=== PATIENT | female | born 2000 | race Caucasian/White ===

== ENCOUNTER 2018-07-18 17:14 | Emergency (ER) | payer BC ==
--- NOTE | 2018-07-18 20:24 | EDPHY ---
H & P Stated Complaint: "Woozy" since blood draw yest, near syncope, asymptom now. - Personal History Current Tetanus/Diphtheria Vaccine: Yes - Medical/Surgical History Hx Asthma: No Hx Chronic Respiratory Disease: No Hx Diabetes: No Hx Cardiac Disease: No Hx Renal Disease: No Hx Cirrhosis: No Hx Alcoholism: No Hx HIV/AIDS: No Hx Splenectomy or Spleen Trauma: No Other PMH: GI problems - Social History Smoking Status: Never smoked Time Seen by Provider: 07/18/18 20:10 HPI/ROS: CHIEF COMPLAINT: "Feeling woozy" HISTORY OF PRESENT ILLNESS: 17-year-old female generally healthy, complaining of feeling lightheaded and "woozy" after routine blood dry yesterday for screening laboratory tests. No blood donation. No syncope ower. No chest pain. No abdominal pain. No complaints of pain. REVIEW OF SYSTEMS: 10 systems reviewed and negative with the exception of the elements mentioned in the history of present illness PAST MEDICAL & SURGICAL HISTORY: No pertinent medical or surgical history SOCIAL HISTORY:Student nonsmoker PHYSICAL EXAM (Prior to examination, patient consented to physical exam, hands were washed and my usual and customary physical exam procedures followed) 1) GENERAL: Well-developed, well-nourished, alert and oriented. Appears to be in no acute distress. 2) HEAD: Normocephalic, atraumatic 3) HEENT: Pupils equal, round, reactive to light bilaterally. Sclera anicteric. Nasopharynx, oropharynx, clear, no lesions. Moist mucous membranes. Ears bilaterally with normal tympanic membranes. 4) NECK: Full range of motion, no meningeal signs. 5) LUNGS: Clear auscultation bilaterally, no wheezes, no rhonchi, no retractions. 6) HEART: Regular rate and rhythm, no murmur, no heave, no gallop. 7) ABDOMEN: No guarding, no rebound, no focal tenderness, negative McBurney's, negative Dominguez's, negative Rovsing's, negative peritoneal sign, 8) MUSCULOSKELETAL: Moving all extremities, no focal areas of tenderness, no obvious trauma. No peripheral edema or discoloration. 9) BACK: No CVA tenderness, no midline vertebral tenderness, no fluctuance, no step-off, no obvious trauma, no visual or palpable abnormality. 10) SKIN: No rash, no petechiae. 11) Psychiatric: Patient is oriented X 3, there is no agitation. 12) NEURO: Awake, alert, and oriented to person, place and time. Answers questions appropriately. There were no obvious focal neurologic abnormalities. No cerebellar dysfunction. Cranial nerves 2 through to 12 intact. Normal steady gait. Upper and lower extremities bilaterally with strength 5 / 5, reflexes 2+. DIFFERENTIAL DIAGNOSIS: In no particular order including but not limited to anemia, endocrinologic pathology, dysrhythmia (Chadd Maynard) Constitutional: Initial Vital Signs Temperature (C) 37.2 C 07/18/18 17:47 Heart Rate 90 07/18/18 17:47 Respiratory Rate 16 07/18/18 17:47 Blood Pressure 135/83 H 07/18/18 17:47 O2 Sat (%) 99 07/18/18 17:47 O2 Delivery Mode Room Air Allergies/Adverse Reactions: No Known Allergies Allergy (Unverified 07/18/18 17:46) Medical Decision Making ED Course/Re-evaluation: 9:20 p.m.: Re-evaluation with serial examinations. She is feeling improvement after IV hydration. Discussed her laboratory studies show no gross abnormality. Normal sinus EKG. She is not . At this time I think the patient can be discharged. She remains with a nonfocal exam. I recommended continued hydration, close follow-up, return to the ER should she develop new or worsening symptoms. She feels comfortable being discharged. All questions and concerns addressed by myself. Patient feels comfortable being discharged. All questions and concerns addressed by myself. Patient given my usual and customary discharge precautions and instructions regarding their clinical impression. Care of patient under supervision of secondary supervising physician Dr Tomas . (Chadd Maynard) The patient was evaluated and managed by the physician assistant corporation counsel. I have reviewed this chart and I agree with the findings and plan of care as documented , as indicated by my signature. I am the secondary supervising physician. ( Filomena Tomas) - Data Points Laboratory Results: Laboratory Results 07/18/18 20:35 07/18/18 20:35 Departure - Departure Disposition: Home, Routine, Self-Care Clinical Impression: Lightheaded Condition: Good Instructions: Lightheadedness (ED) Additional Instructions: So keep drinking fluids, return to the ER if you develop dizziness, chest pain or any other symptoms that concern you. Referrals: [facility] [Clinic] - 1-2 days without fail Stand Alone Forms: School Excuse
[2018-07-18 20:45] LABS: PLATELET COUNT 301 10^3/uL (150-400)
[2018-07-18 21:29] VITALS: BP 124/89
--- NOTE | 2018-07-18 23:31 | CPEKG ---
Test Reason : OPEN Blood Pressure : / mmHG Vent. Rate : 080 BPM Atrial Rate : 081 BPM P-R Int : 145 ms QRS Dur : 088 ms QT Int : 365 ms P-R-T Axes : 079 048 044 degrees QTc Int : 421 ms Sinus rhythm Confirmed by Filomena Tomas ([id number]) on 07/18/2018 11:31:15 PM Referred By: Filomena Tomas Confirmed By:Filomena Tomas
== END 2018-07-18 21:29 | disposition home or self-care (01) ==
DX: R42 Dizziness and giddiness (principal)